=== PATIENT | female | born 1980 | race Caucasian/White ===

== ENCOUNTER 2020-10-10 14:50 | Outpatient (CLI) | payer OTHER, SELFPAY ==
--- NOTE | ~2020-10-10 | XR_ITS ---
EXAMINATION:XR_[id number]_CR, XR thoracic spine 2V DATE: 10/10/2020 15:19 INDICATION: Neck and thoracic spine pain. TECHNIQUE: 1. AP, lateral and odontoid views of the cervical spine are provided. 2. AP, lateral and lateral swimmer's views of the thoracic spine are provided. COMPARISON: None FINDINGS: Cervical spine: Straightening of the normal cervical lordosis . Odontoid is intact. Normal atlantoaxial interval. Ve rtebral body heights are normal. Mild disc height loss at C6-C7. Mild uncovertebral and facet osteoar thritis at a few levels in the thoracic spine. Prevertebral soft tissues are normal. Thoracic spine: Alignment is normal. Vertebral body heights are normal. Mild disc height loss at a few levels the mid to lower thoracic spine greatest at T7-T8 through T9-T10. Paravertebral soft tissues are unremarkabl e. Visual is portions of the lungs are clear. Cardiomediastinal silhouette is normal. IMPRESSION: 1. Mild cervical and thoracic spondylosis. Reviewed, dictated and finalized at location . RAISING SALE REPRESENTATIVE IMPRESSION: 1. Mild cervical and thoracic spondylosis.
== END 2020-10-10 14:51 | disposition home or self-care (01) ==
LOC: ANHIMG 14:57
PROVIDERS: PCP Nurse Practitioner Family; Visit Provider Nurse Practitioner Family
DX: M54.2 Cervicalgia (principal); M54.6 Pain in thoracic spine; M47.12 Other spondylosis with myelopathy, cervical region; M48.14 Ankylosing hyperostosis [Forestier], thoracic region
CPT/HCPCS: 72040; 72070

== ENCOUNTER 2020-10-29 13:15 | Outpatient (RCR) | payer OTHER, SELFPAY ==
--- NOTE | 2020-10-15 11:57 | PTOPEVAL ---
PHYSICAL THERAPY EVALUATION Thank you for referring Maryam Petty [facility].? Maryam was evaluated today with a dx of cervicalgia. The patient is scheduled to be seen for therapy? 2 x/week for 3 weeks. Please review, sign, date and return this plan of care ROCAEL. I agree with and certify that the following plan of care is medically necessary. Referring Physician Date Attending Provider: Linsey Meeks, ELECTRICAL CONTINUITY TESTER *PT Outpatient Evaluation Start: 10/15/20 10:48 Freq: Status: Active Protocol: Document 10/15/20 10:48 MLV (Rec: 10/15/20 11:47 [facility] [id number]) Therapy Assessment Status Evaluation Information Problem Diagnosis cervicalgia Onset 3 weeks Cause none Additional Evaluation Detail Patient had no neck or shoulder pain in the past, then woke up one morning with shoulder blade pain. 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 The patient cares for 3 children. The patient has no hobbies that would aggravate the pain. Diagnostic Tests X-Rays For This Problem Yes: cervical OA MRI For This Problem No Other Tests For This Problem No Pain Assessment Timing of Pain Assessment Timing of Pain Assessment Assessment Pain Scale Pain Scale Used Numeric (1 - 10) Self Report Pain Assessment Right Neck Reported Pain Level 4 Pain Description Burning,Sharp Lowest Pain Intensity 4 Greatest Pain Intensity 7 Pain Level Goal 0 Pain Aggravating Factors Prolonged Position,Sitting Pain Behaviors Guarding Pain Score Pain Score 4: Self Report Interventions Used Interventions Used By Clinicians Education Pain Relief Interventions Used By Medication,Position Change Patient Other Alleviating Interventions diclofenac giving temporary relief, raising right arm overhead Cervical and Lumbar ROM Cervical ROM Cervical Flexion (0-60) 60 Query Text:Active in Degrees Cervical Extension (0-70) 70 Query Text:Active in Degrees Cervical Lateral Flexion Right (0-50) 50 Query Text:Active in Degrees Cervical Lateral Flexion Left (0-50) 40 Query Text:Active in Degrees Cervical Rotation Right (0-90) 90 Query Text:Active in Degrees Cervical Rotation Left (0-90) 90 Query Text:Active in Degrees Upper Extremity Range of Roc
--- NOTE | 2020-10-23 08:38 | PCPTNOTE ---
Patient did not show up for scheduled appointment this date. Called patient, however, had to leave a message.
--- NOTE | 2020-11-01 16:08 | PCPTNOTE ---
Patient called & cancelled scheduled appointment this date.
--- NOTE | 2020-11-06 12:40 | PCPTNOTE ---
Patient called & cancelled scheduled appointment this date due to has to take her daughter to the
--- NOTE | 2020-11-09 13:07 | PCPTNOTE ---
Patient did not show up for scheduled appointment this date. Patient was called and reports she forgot about today's appt. The patient states she will call on Thursday to discuss possible reschedule. Patient has no other scheduled appt's at this time.
--- NOTE | 2020-12-07 08:19 | PCPTNOTE ---
PHYSICAL THERAPY DISCHARGE SUMMARY Attending Provider: Linsey Meeks, SIERRA Patient:Maryam Petty Date of :1980 Patient has not returned for any further treatments since 10/29/2020, therefore she will be discharged at this time. Patient?s initial visit was on 10/15/2020 10:30 and she had a total of 3 visits. The goals have not been met. Thank you for referring this patient to [facility]. Please review, sign, date and return this discharge summary ROCAEL. I have been updated about the patient's current status and I agree with discharge from the above service at this time. Referring Physician Date
== END 2020-12-10 13:35 | disposition home or self-care (01) ==
LOC: ANHPT 13:15
PROVIDERS: PCP Nurse Practitioner Family; Visit Provider Nurse Practitioner Family
DX: M54.2 Cervicalgia (principal)
CPT/HCPCS: 97014; 97110; 97140; 97161; G0283

== ENCOUNTER 2022-03-26 14:09 | Outpatient (CLI) | payer OTHER, SELFPAY ==
--- NOTE | 2022-03-26 14:21 | ECG_ITS ---
Measurements Intervals Isabel Rate: 80 P: 53 MI: 150 QRS: 88 QRSD: 85 T: 74 QT: 365 QTc: 421 Interpretive Statements SINUS RHYTHM BASELINE WANDER- V4 NORMAL ECG Electronically Signed On 03-26-2022 15:15:10 CDT by Giovanni Park D.O.
== END 2022-03-26 14:10 | disposition home or self-care (01) ==
LOC: ANHCARD 14:13
PROVIDERS: PCP Nurse Practitioner Family; Visit Provider Anesthesiology
DX: Z01.810 Encounter for preprocedural cardiovascular examination (principal); F17.200 Nicotine dependence, unspecified, uncomplicated
CPT/HCPCS: 93005

== ENCOUNTER 2025-03-10 10:54 | Outpatient (CLI) | payer OTHER, SELFPAY ==
--- NOTE | ~2025-03-10 | MMUS_ITS ---
EXAMINATION: MM diag darrin implant BI w melony, US breast LT limited HISTORY: Palpable left breast abnormality TECHNIQUE: Additional 3-D tomosynthesis images of the breasts were performed and synthetic 2-D images were generated. CAD analysis was submitted and interpreted. High resolution Limited left breast ultr asound was performed. COMPARISON: None BREAST PARENCHYMAL COMPOSITION: Dense: The breasts are heterogeneously dense, which may obscure small masses FINDINGS: MAMMOGRAPHIC FINDINGS: There are bilateral subpectoral breast implants. There are no suspicious masses, calcifications or ar chitectural distortion in either breast to suggest malignancy. ULTRASOUND: Limited left breast ultrasound: There is a normal-appearing left axillary lymph node with fatty hilum measuring 1 cm. No suspicious masses to suggest malignancy. IMPRESSION: 1. No evidence for malignancy in either breast. Normal lymph node corresponds to the area of palpable concern. 2. Routine yearly screening mammogram and regular clinical breast examination are recommended. BI-RADS Category 2: Benign finding(s). Reviewed, dictated and finalized at location B. IMPRESSION: 1. No evidence for malignancy in either breast. Normal lymph node corresponds t o the area of palpable concern. 2. Routine yearly screening mammogram and regular clinical breast examination a re recommended. BI-RADS Category 2: Benign finding(s).
--- OUTSIDE RECORDS SUMMARY | 2025-03-10 11:12 | XMS_ITS | Referral Summary ---
Author Organization [facility] [address] Address [address] [place] [id number] Care Team Providers Care Director Of Nursing Name Role Phone Unknown, Notinfile Primary Care Provider Unavail able Allergies No known active allergies Medications benzonatate (TESSALON) 100 mg capsuleIndications: Cough Take 1 capsule (100 mg total) by mouth 3 (three) times a day as needed for cough 42 capsule 09/29/20 24 Active Additional Information Patient not taking.Reported on 10/15/2024 lidocaine viscous (XYLOCAINE) 2 % solutionIndications :Sore throat Apply 10 mL to the mouth or throat every 6 (six) hours as needed (sore throat) May mix with 30 ml of Mylanta 100 mL 09/29/20 24 Active Additional Information Patient not taking.Reported on 10/15/2024 acyclovir (ZOVIRAX) 400 mg tablet TAKE 1 TABLET BY MOUTH THREE TIMES DAILY FOR 5 DAYS 11/01/20 24 Active albuterol HFA (PROVENTIL HFA,VENTOLIN HFA,PROAIR HFA) 90 mcg/actuation inhalerIndications: Hx of wheezing Inhale 2 puffs every 6 (six) hours as needed for wheezing 1 each 12/08/19 25 026 Active benzonatate (TESSALON) 200 mg capsuleIndications: Acute nasopharyngitis Take 1 capsule (200 mg total) by mouth 3 (three) times a day as needed for cough keep tessalon out of reach of children, especially children under the age of 10, due to possible serious risk such as if ingested by children under the age of 10. 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 Gender Identity Not on file Sexual Orientation Not on file Last Filed Vital Signs Vital Sign Reading Time Taken Comments Blood Pressure 110/72 12/08/2024 4:15 PM HYDRAULIC PRESS SERVICER Pulse 88 12/08/2024 4:15 PM HYDRAULIC PRESS SERVICER Temperature 36.8 C (98.2 F) 12/08/2024 4:15 PM HYDRAULIC PRESS SERVICER Respiratory Rate 20 12/08/2024 4:15 PM HYDRAULIC PRESS SERVICER Oxygen Saturation 99% 12/08/2024 4:15 PM HYDRAULIC PRESS SERVICER Inhaled Oxygen Concentration - - Weight 64.9 kg (143 lb) 12/08/2024 4:15 PM HYDRAULIC PRESS SERVICER Height 175.3 cm (5' 9 ) 12/08/2024 4:15 PM HYDRAULIC PRESS SERVICER Body Mass Index 21.12 12/08/2024 4:15 PM HYDRAULIC PRESS SERVICER Plan of Treatment Not on file Insurance [facility] Care Teams Director Of Nursing Relationship Specialty Start Date End Date Unknown, Notinfile PCP - General 09/29/24
--- OUTSIDE RECORDS SUMMARY | 2025-03-10 11:12 | XMS_ITS | Data Portability ---
Author Organization [facility] [place] Address [address] [place] [address] Care Team Providers Care E Learning Manager Name Role Phone ANIVAL MUSE Primary Care Provider Assessment Encounter Date Assessment Date Assessment LastModified by Organization Details LastModified Time 01/13/2022 01/13/2022 healthy female exam patient desires std testing pap done, discussed guidelines mammogram ordered and encouraged contraception- Discussed various forms of contraception including their usage, and risks, benefits, and alternatives. Pt desires sterilization. she is certain. tubal paper signed. will schedule and discuss in depth at preop visit. FU 1 year or prn Not available 01/14/2022 09:28:25 Plan of Treatment Reminders Order Date Submit Date Provider Last Modified By Organization Details Last Modified Time Details Appointments None recorded. Lab HBsAg (hepatitis B surface Ag), serum 2021 022 [facility] (Lab), [address], [place], [address], 15:23:29 hepatitis C virus Ab, serum 2021 022 [facility] (Lab), [address], [place], [address], 15:23:29 unlisted lab - HIV 1/2 antigen/ant ibody, reflex confirmatio n 2021 [facility] (Lab), [address] [place], [address], 15:23:29 RPR (rapid plasma reagin), serum 2021 [facility] (Lab), [address], [place], [address], 15:23:29 Referral None recorded. Procedures None recorded. Surgeries salpingecto my, laparoscopi c (SURG) 2021 [facility] [place], [address], [place], [address], 09:31:42 Imaging None recorded. Medication Orders None recorded. Patient TargetsNo targets recorded. Patient InstructionsNo instructions recorded. Reason for Referral None Reported. Results Created Date Observation Date Name Description Value Unit Range Abnormal Flag Note LastModifiedBy Organization Detail LastModifiedTime 01/13/2001/13/2022 IMAGE GUIDE D PAP AND HPV REGAR DLESS image guided Pap, HPV regardless of Pap result SEE RESULT S BELOW CASE REPOR T: Cytol ogy Gynec ologi dian Repor t Case: [id number] Autho riclemente g Provi andre: Yumiko Laguerre MD Colle cted: 01/13 1548 Order ing Locat ion: [place] [facility] Recei ish: 01/13 2351 First Scree n: Noadore willson, Moham ed, [place] Rescr een: Olivia barry, [place], [place] Speci men: Scree stu Pap - Image d, Cervi x STATE MENT OF ADEQU ACY: Satis facto ry for evalu ation Trans forma tion zone compo nent absen t The absen ce of an endoc ervic al compo nent was confi rmed by an addit ional scree ner. FINAL DIAGN OSIS: Negat darshan for Intra epith elial Lesio n or Anna hercules (NIL) . Shift in deepa sugge stive of bacte rial vagin osis. Elect solomon caro renea d by Olivia barry, [place], [place] on 2021 at 2:16 PM ----- ----- ----- ----- ----- ----- ----- ----- ----- ----- ----- ----- ----- ----- ----- ----- ----- ---- HPV RESUL TS: HPV mRNA E6/E7 : No HPV mRNA Detec wendie NOTE: This high risk HPV mRNA assay detec ts fourt een high- risk HPV types (16, 18, 31, 33, 35, 39, 45, 51, 52, 56, 58, 59, 66, 68) witho ut diffe renti ation . COMME NT: Note: This speci men was revie wed by a Cytot echno logis t and/o r Patho logis t (as indic ated in this repor t) after evalu ation using the Thinp rep Imagi ng Syste m. CLINI DIAN INFOR MATIO N: Menst rual Statu s: LMP (if appli cable ): Clini dian Histo ry/Pr eviou s Pap: Type of Neopl jason (if appli cable ): Signi fican t Clini dian Findi ngs: Other Histo ry: Hormo jean (if appli cable ): PAP EDUCA AIDAN L NOTE: The Pap Test is a scree stu test with an inher ent false negat darshan rate. Liqui d-bas ed sampl ing may decre ase, but will not elimi murphy, false negat darshan resul ts. A negat darshan resul t does not precl ude the prese nce and/o r devel opmen t of disea se, since the prese nce of abnor mal cells in the sampl e depen ds on the locat ion of the lesio n and sampl ing techn ique. Anoop nued regul ar scree stu is the best metho d of cance r preve ntion . If repor wendie cytol ogic findi ng do not corre late with physi dian and/o r histo rical findi ngs, fur er inves tigat ion is recom kayla d, as clini ling pringle nted. Not Available [facility] (Lab) [address], [place], [address], 01/18/2022 15:18:49 Result Notes None recorded. Procedures Surgical History Date Name Laterality Status Provider Name and Address Organization Details Recorded Time [address] [facility] 01/13/2022 14:11:58 Imaging Results None recorded. Procedure Notes None recorded. Medical Equipment None Reported. Medications Name Sig Start Date Stop Date Status Note LastModified by Organization Details LastModified Time acyclovir 400 mg tablet TAKE 1 TABLET BY MOUTH THREE TIMES DAILY FOR 5 DAYS active Not Available Not Available N ot Available phenazopyrid ine 100 mg tablet TAKE 1 TABLET BY MOUTH THREE TIMES DAILY active Not Available Not Available Not Available promethazine 25 mg tablet TAKE 1 TABLET BY MOUTH EVERY 4 TO 6 HOURS NEEDED FOR NAUSEA active Not Available Not Available No t Available nicotine 21 mg/24 hr daily transdermal patch APPLY 1 PATCH EVERY DAY TO SKIN active Not Available Not Available Not Available hydroxyzine HCl 25 mg tablet TAKE 1 TABLET BY MOUTH EVERY 6 HOURS NEEDED active Not Available Not Available No t Available ibuprofen 600 mg tablet TAKE 1 TABLET BY MOUTH EVERY 6 HOURS NEEDED FOR PAIN active Not Available Not Available No t Available methylpredni solone 4 mg tablets in a dose pack FOLLOW PACKAGE DIRECTIONS active Not Available Not Available N ot Available bupropion HCl XL 150 mg 24 hr tablet, extended release TAKE 1 TABLET BY MOUTH EVERY DAY active Not Available Not Available No t Available nitrofuranto in monohydrate/ macrocrystal s 100 mg capsule TAKE 1 CAPSULE BY MOUTH EVERY 12 HOURS FOR 5 DAYS active Not Available Not Available N ot Available Plan B One-Step 1.5 mg tablet Take 1 tablet by oral route. 2021 active Not Available Not Available Not Avai lable Vitals Date Recorded Body height Body mass index (BMI) Body weight Systolic blood pressure Diastolic blood pressure Provider Name and Address Organization Details Last Updated DateTime 01/13/2022 175.26 cm 22.9 kg/m2 18318.82 g 114 mm[Hg] 73 mm[Hg] [facility] 14:08:17 Social History Question Answer Notes LastModified by Organizat ion Details LastModified Time Tobacco Smoking Status Current Every Day Smoker Grace Safia [facility] 01/13/2022 14:13:09 What Is Your Level Of Alcohol Consumption? Occasional Information not available 01/13/2022 Have You Ever Been Counseled For Unhealthy Alcohol Use? No Information not available 01/13/2022 How Much Tobacco Do You Smoke? 0.5 PPD Information not available 01/13/2022 Do You Use Any Illicit Or Recreational Drugs? No Information not available 01/13/2022 Has Tobacco Cessation Counseling Been Provided? No Information not available 01/13/2022 Do You Or Have You Ever Used Any Other Forms Of Tobacco Or Nicotine? No Information not available 01/13/2022 Sex: Unknown Functional Status None recorded. Mental Status None recorded. Family History Nothing Reported. Medical History Condition Response Allergies (Food, seasonal, environmental ) N Other N Breast Cancer N Drug/Latex Allergies/Reactions N Blood Transfusion N Dermatologic Disorders N Lung Disease N Defects or Inherited Disease N Breast Problem N Gestational Diabetes N Hematologic disorders N Anesthesia Complications N History of STI N Deep Vein Thrombosis N Polycystic ovary syndrome N Anxiety Disorder N Autoimmune disease N Arthritis N Infertility N Polyps N Acid Reflux (GERD) N History of abnormal pap N Cancer N Stroke N Varicosities N Neurologic/Epilepsy N Endometriosis N High Cholesterol N Headaches N Fibromyalgia N Kidney Disease N Heart Problems N Kidney or Bladder Problems N Thyroid Problems N GI Problems N Eating Disorder N Anemia N Art (IVF or FET) N Psychiatric Illness N Ovarian Cancer N Diabetes N Pulmonary (TB, Asthma) N Hepatitis/Liver Disease N No Past Medical History N Eczema N Urinary Tract Infection N Abuse/Domestic Violence N Asthma N Trauma/Violence N Depression/ depression N Heart Disease N Pre-Eclampsia N Hypertension N Osteoporosis N Thrombophilias N Gynecological History Statement/Question Response Date of Last Pap Smear Current Control Method None Date of Last Mammogram Date of LMP Obstetrics History GPAL:G 5 P 4 0 1 4 Type Value Full Term 4 Induced 1 Living 4 Total 5 Past Encounters Encounter ID Performer Location Encounter Start Date Encounter Closed Date Diagnosis/Indication Diagnosis SNOMED-CT Code Diagnosis ICD10 Code Diagnosis Note [id number] Yumiko Gimenez MD [place] [address] [address] 01/13/2022 13:57:44 01/14/2022 15:17:11 Gynecologic examination 95772341 Z01.419 Z11.51 Sterilizat ion requested 858162858 Z30.2 Venereal d isease screening 264887934 Z11.3 Health Concerns Section Related Observation LastModified by Organization Detai ls LastModified Time None Recorded Concern Status LastModified by Organization Details LastModified Time None Recorded Advance Directives Directive None Recorded Payers Encounter Date Sequence Insurance Name Policy Number Policy Herron Covered Member ID Herron Member ID Guarantor Name 01/13/2022 1 [facility] (MEDICAID HMO) [id number] Maryam Cazares [id number] Maryam Cazares Notes Date Note Type Note Provider Name and Address Organization Details Recorded Time 01/13/2022 text/html Patient is a 41yo who presents for an annual exam. Paps all normal. interested in BC or maybe tubal. smoker. last pap-2018 mammogram- none sexually active-y contraception-co ndoms sometimes seatbelts-y exercise-y depression-denie s domestic violence-denies tobacco-n concerns- Yumiko Gimenez MD [address], [place], [address], [facility] 01/15/2022 11:38:49 OBGyn Episode Ob Episode Information Episode Created Date Number of Fetuses Patient Bloodtype Patient rh Status Prepregnancy Weight lbs Domestic Partner Domestic Partner Phone Father Name Blue Split Trimmer Status 01/13/20 22 1 CLOSED Fetus Data First Name Last Name Admitted to NICU Weight (g) Sex Living Outcome Pediatric Complications Fetus ID Race Codes Race Delivery Type M Full Term [id number] Vaginal Delivery Seferino Calculation Initial Seferino Date Initial Exam Date Initial Exam Provider Initial Ultrasound Date Last Menstrual Period Date Ultra Sound Weeks Gestation 0 Eighteen To Twenty Week Seferino Update Ultra Sound Date Fundal Height At Umbil Quickening Date Ultra Sound Latest Weeks Gestation Final Seferino Confirmed By Final Seferino Confirmed Date Final Seferino Date Ultra Sound Latest Days Gestation 0 0 Menstrual History Last Menstrual Date Menses Monthly On Bcp Conception Prior Menses Frequency Hcg Plus Date Menarche Onset Age Delivery Information Delivery Date Delivery Type Labor Anesthesia Weeks Gestation Incision Type Labor Labor Length Hrs Delivered By Post Complications Tubal Sterilization Discharge Date Comments 7 40 Discharge Information Feeding Method Contraceptive Method Maternal HG B and HCT Levels Ob Episode Information Episode Created Date Number of Fetuses Patient Bloodtype Patient rh Status Prepregnancy Weight lbs Domestic Partner Domestic Partner Phone Father Name Blue Split Trimmer Status 01/13/20 22 1 CLOSED Fetus Data First Name Last Name Admitted to NICU Weight (g) Sex Living Outcome Pediatric Complications Fetus ID Race Codes Race Delivery Type M Full Term [id number] Vaginal Delivery Seferino Calculation Initial Seferino Date Initial Exam Date Initial Exam Provider Initial Ultrasound Date Last Menstrual Period Date Ultra Sound Weeks Gestation 0 Eighteen To Twenty Week Seferino Update Ultra Sound Date Fundal Height At Umbil Quickening Date Ultra Sound Latest Weeks Gestation Final Seferino Confirmed By Final Seferino Confirmed Date Final Seferino Date Ultra Sound Latest Days Gestation 0 0 Menstrual History Last Menstrual Date Menses Monthly On Bcp Conception Prior Menses Frequency Hcg Plus Date Menarche Onset Age Delivery Information Delivery Date Delivery Type Labor Anesthesia Weeks Gestation Incision Type Labor Labor Length Hrs Delivered By Post Complications Tubal Sterilization Discharge Date Comments 3 40 Discharge Information Feeding Method Contraceptive Method Maternal HG B and HCT Levels Ob Episode Information Episode Created Date Number of Fetuses Patient Bloodtype Patient rh Status Prepregnancy Weight lbs Domestic Partner Domestic Partner Phone Father Name Blue Split Trimmer Status 01/13/20 22 1 CLOSED Fetus Data First Name Last Name Admitted to NICU Weight (g) Sex Living Outcome Pediatric Complications Fetus ID Race Codes Race Delivery Type F Full Term [id number] Vaginal Delivery Seferino Calculation Initial Seferino Date Initial Exam Date Initial Exam Provider Initial Ultrasound Date Last Menstrual Period Date Ultra Sound Weeks Gestation 0 Eighteen To Twenty Week Seferino Update Ultra Sound Date Fundal Height At Umbil Quickening Date Ultra Sound Latest Weeks Gestation Final Seferino Confirmed By Final Seferino Confirmed Date Final Seferino Date Ultra Sound Latest Days Gestation 0 0 Menstrual History Last Menstrual Date Menses Monthly On Bcp Conception Prior Menses Frequency Hcg Plus Date Menarche Onset Age Delivery Information Delivery Date Delivery Type Labor Anesthesia Weeks Gestation Incision Type Labor Labor Length Hrs Delivered By Post Complications Tubal Sterilization Discharge Date Comments 2 40 Discharge Information Feeding Method Contraceptive Method Maternal HG B and HCT Levels Ob Episode Information Episode Created Date Number of Fetuses Patient Bloodtype Patient rh Status Prepregnancy Weight lbs Domestic Partner Domestic Partner Phone Father Name Blue Split Trimmer Status 01/13/20 22 1 CLOSED Fetus Data First Name Last Name Admitted to NICU Weight (g) Sex Living Outcome Pediatric Complications Fetus ID Race Codes Race Delivery Type F Full Term [id number] Vaginal Delivery Seferino Calculation Initial Seferino Date Initial Exam Date Initial Exam Provider Initial Ultrasound Date Last Menstrual Period Date Ultra Sound Weeks Gestation 0 Eighteen To Twenty Week Seferino Update Ultra Sound Date Fundal Height At Umbil Quickening Date Ultra Sound Latest Weeks Gestation Final Seferino Confirmed By Final Seferino Confirmed Date Final Seferino Date Ultra Sound Latest Days Gestation 0 0 Menstrual History Last Menstrual Date Menses Monthly On Bcp Conception Prior Menses Frequency Hcg Plus Date Menarche Onset Age Delivery Information Delivery Date Delivery Type Labor Anesthesia Weeks Gestation Incision Type Labor Labor Length Hrs Delivered By Post Complications Tubal Sterilization Discharge Date Comments 7 40 Discharge Information Feeding Method Contraceptive Method Maternal HG B and HCT Levels
--- OUTSIDE RECORDS SUMMARY | 2025-03-10 11:12 | XMS_ITS | Clinical Summary ---
Author Organization [facility] Address [address] [place] [address] Phone Care Team Providers Care Metal Flow Coordinator Name Role Phone Provider, None Primary Care Provider Unavailabl e Allergies No known active allergies Medications methylPREDNISol one (MEDROL DOSPACK) 4 MG Tablet Therapy Pack See product package insert for dosing schedule 21 Tablet 05/18/2023 Active cyclobenzaprine (FLEXERIL) 5 MG Tablet Take 1 Tablet by mouth 3 times daily as needed for Muscle spasms. 15 Tablet 05/18/2023 Active ketorolac (TORADOL) 10 MG Tablet Take 1 Tablet by mouth every 6 hours as needed for Mild or more severe pain. 15 Tablet 05/18/2023 Active Social History Tobacco Use Types Packs/Day Years Used Date Smoking Tobacco: Unknown Tobacco Cessation:Counseling Given: Not Answered Comments Unknown Sex and Gender Information Value Date Recorded Sex Assigned at Not on file Legal Sex Female 2:22 PM CDT Gender Identity Not on file Sexual Orientation Not on file Last Filed Vital Signs Vital Sign Reading Time Taken Comments Blood Pressure 128/69 05/18/2023 5:51 PM CDT Pulse 90 05/18/2023 5:51 PM CDT Temperature 37.2 C (99 F) 05/18/2023 2:44 PM CDT Respiratory Rate 18 05/18/2023 5:51 PM CDT Oxygen Saturation 100% 05/18/2023 5:51 PM CDT Inhaled Oxygen Concentration - - Weight 68 kg (150 lb) 05/18/2023 2:44 PM CDT Height 175.3 cm (5' 9 ) 05/18/2023 2:44 PM CDT Body Mass Index 22.15 05/18/2023 2:44 PM CDT Plan of Treatment Health Maintenance Due Date Last Done Comments Hepatitis C Virus (HCV) Screening 1978 Mammogram 1978 Pap Smear 1999 Cervical Cancer Screening (CCS) 2008 HPV/Cotest 2008 Discussion re Starting/Frequency of Mammograms 2018 Colonoscopy 2023 Colorectal Cancer Screening 2023 Hepatitis B Immunization (3 of 3 - 19+ 3-dose series) 07/05/2023 02/11/2023, 01/05/2023 Influenza Immunization (#1) 2024 SARS-COV-2 Immunization (2023- season) 2024 07/15/2021, 06/24/2021, 06/03/2021 Respiratory Syncytial Virus (RSV) Immunization (Adult) (1 - 1-dose 75+ series) 2053 DTaP/Tdap/Td Immunization Discontinued 11/03/2019 TdaP Immunization Completed 11/03/2019 Meningococcal Immunization (ACWY) Aged Out No longer eligible based on patient's age to complete this topic Pneumococcal Immunization Combined Aged Out No longer eligible based on patient's age to complete this topic Rotavirus Immunization Aged Out No lo nger eligible based on patient's age to complete this topic Insurance MEDICAID [place] Care Teams Metal Flow Coordinator Relationship Specialty Start Date End Date Provider, None [place] PCP - General 05/18/23
--- OUTSIDE RECORDS SUMMARY | 2025-03-10 11:12 | XMS_ITS | Clinical Summary ---
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 Gender Identity Not on file Sexual Orientation Not on file Obstetrics History Last Filed Vital Signs Vital Sign Reading Time Taken Comments Blood Pressure 110/72 12/08/2024 4:15 PM CEMENT TILE MAKER Pulse 88 12/08/2024 4:15 PM CEMENT TILE MAKER Temperature 36.8 C (98.2 F) 12/08/2024 4:15 PM CEMENT TILE MAKER Respiratory Rate 20 12/08/2024 4:15 PM CEMENT TILE MAKER Oxygen Saturation 99% 12/08/2024 4:15 PM CEMENT TILE MAKER Inhaled Oxygen Concentration - - Weight 64.9 kg (143 lb) 12/08/2024 4:15 PM CEMENT TILE MAKER Height 175.3 cm (5' 9 ) 12/08/2024 4:15 PM CEMENT TILE MAKER Body Mass Index 21.12 12/08/2024 4:15 PM CEMENT TILE MAKER Plan of Treatment Health Maintenance Due Date Last Done Comments Breast Cancer Screening-Mammogram 1978 Cervical Cancer Screening 1978 Colon Cancer Screening-Colonoscopy 1978 Depression Screening 1978 Hepatitis C Screening 1978 Regular Well Visit/Exam 18-64 1996 Pneumococcal vaccine <65 (1 of 2 - PCV) 1997 HPV Vaccines (3 - 3-dose SCDM series) 05/25/2023, 11/25/2022 Covid-19 Vaccine ( season) 2024 07/15/2021, 06/24/2021, 06/03/2021 Influenza Vaccine (Season Ended) 2025 DTaP/Tdap/Td Vaccine (2 - Td or Tdap) 11/03/202910/2019 Hepatitis B Screening Completed 02/11/2023, 023 Insurance Care Teams Pv Design And Installation Technician Relationship Specialty Start Date End Date Unknown, Notinfile PCP - General 09/29/24
== END 2025-03-10 10:55 | disposition home or self-care (01) ==
LOC: ANHIMG 11:00
PROVIDERS: PCP Nurse Practitioner Family; Visit Provider Nurse Practitioner Family
DX: R22.2 Localized swelling, mass and lump, trunk (principal)
CPT/HCPCS: 76642; 77062; 77066; G0279

== ENCOUNTER 2025-04-11 12:26 | Emergency (ER) | payer OTHER, SELFPAY ==
--- NOTE | ~2025-04-11 | CT_ITS ---
EXAMINATION: CT abdomen pelvis wo con DATE: 04/11/2025 15:03 INDICATION: L flank/LLQ pain uti TECHNIQUE: Computed tomography (CT) of the abdomen and pelvis was performed without intravenous contr ast. Automated exposure control and iterative reconstruction technique were employed. The dose-length product was 229.38 mGy-cm. COMPARISON: None. FINDINGS: Lower thorax: Unremarkable Liver: Normal. Biliary/Gallbladder: Gallbladder is normal. No bile duct dilation. Pancreas: No mass or duct dilation. Spleen: Normal. Adrenals:No mass. Kidneys: No suspicious mass, obstructing stone, or hydronephrosis. Punctate left lower pole nonobstru cting calcification. Renal pyramid hyperdensity as can be seen with medullary nephrocalcinosis. Urete rs are not traceable in their entirety due to the paucity of abdominal fat. GI tract: No small or large bowel dilation. Normal appendix. Mesentery/Peritoneum: No ascites, mass, or free air. Mild diffuse mesenteric stranding. Retroperitoneum: No mass. Pelvis: Normal urinary bladder. Punctate calcification on the right, near the expected pathway of the ureter (image 137/180). Enlarged, somewhat lobular appearing uterus. Soft Tissues: Soft tissues and body wall unremarkable. Bones: No acute osseous finding. Multiple bone islands. IMPRESSION: No left-sided obstructive uropathy. Punctate nonobstructive left nephrolithiasis. Punctate right deep pelvic calcification which could represent vascular, dystrophic, or ureteral calc ification. CT urography would be required for confirmation. Mild diffuse mesenteric edema, a nonspecific finding. Enlarged, possibly fibroid uterus. Reviewed, dictated and finalized at location K. IMPRESSION: No left-sided obstructive uropathy. Punctate nonobstructive left nephrolithiasi s. Punctate right deep pelvic calcification which could represent vascular, dystro phic, or ureteral calcification. CT urography would be required for confirmatio n. Mild diffuse mesenteric edema, a nonspecific finding. Enlarged, possibly fibroid uterus.
--- OUTSIDE RECORDS SUMMARY | 2025-04-11 12:28 | XMS_ITS | Encounter Summary ---
Author Organization [facility] Healthcare Address [address] [place] [address] Care Team Providers Care Roll Builder Name Role Phone Meeks, Linseygiancarlo Huggins AND DRYING SUPERVISOR COOKING CASING Primary Care Provider [phone] Reason for Visit * Reason Comments Urinary Problem Patient here for c/o back pain and frequency Encounter Details Date Type Department Care Team (Late st Contact Info) Description 04/10/2025 11:30 AM CDT Office Visit [facility] at [address] [address] Gregoria Madrid, BUSHRA [address] [place] [address] [address] [place], [place] [id number] Acute cystitis with hematuria (Primary Dx) Social History Tobacco Use Types Packs/Day Years Used Date Smoking Tobacco: Every Day Cigarettes Comments Unknown Sex and Gender Information Value Date Recorded Sex Assigned at Not on file Legal Sex Female 10:07 AM PHYSICAL THERAPY SUPERVISOR Gender Identity Not on file Sexual Orientation Not on file documented as of this encounter Last Filed Vital Signs Vital Sign Reading Time Taken Comments Blood Pressure 113/72 04/10/2025 11:18 AM CDT Pulse 68 04/10/2025 11:18 AM CDT Temperature 36.6 C (97.8 F) 04/10/2025 11:18 AM CDT Respiratory Rate 21 04/10/2025 11:18 AM CDT Oxygen Saturation 97% 04/10/2025 11:18 AM CDT Inhaled Oxygen Concentration - - Weight 64.9 kg (143 lb) 04/10/2025 11:18 AM CDT Height 175.3 cm (5' 9 ) 04/10/2025 11:18 AM CDT Body Mass Index 21.12 04/10/2025 11:18 AM CDT documented in this encounter Patient Instructions * Patient Instructions* Gregoria Madrid PA - 04/10/2025 11:30 AM CDT -Take all antibiotic medications as prescribed. -We will notify you of urine culture results -Push fluids, especially water. This also helps prevent future infections. -Urinate when you feel the urge. Do not hold your urine. Urinate as soon as you feel you have to. -Cranberry juice has been shown to promote healing, use at your discretion. -Make sure to always wipe from front to back after urinating. -If you are sexually active make sure to urinate Before AND after sex to help prevent bladder infections. -Avoid intercourse until your symptoms are resolved for one week. -Do not drink alcohol, caffeine, and citrus juices. These can irritate your bladder and increase your symptoms. Seek care (go to Urgent Care or ER) immediately if: ?? You are urinating very little or not at all. ?? You are vomiting. ?? You have a high fever with shaking chills. ?? You have side or back pain that gets worse. ??Contact your primary care doctor or PANELBOARD OPERATOR if: ?? You have a fever. ?? You have white or yellow discharge from your vagina. ?? You do not feel better after 2 days of taking antibiotics. * Attachments The following attachments cannot be sent through Care Everywhere. * Urinary Tract Infection in Women (AfterCare(R) Instructions(ER/ED)) (Stateless) documented in this encounter Ordered Prescriptions Prescription Sig Dispense Quantity Refills Last Filled Start Date End Date nitrofurantoin monohydrate (MACROBID) 100 mg capsule Take 1 capsule (100 mg total) by mouth 2 (two) times a day for 5 days 10 capsule 04/10/2025 5 documented in this encounter Progress Notes * Gregoria Madrid PA - 04/10/2025 11:30 AM CDT Images from the original note were not included. Subjective/Objective Patient ID: Maryam Taylor Cazares is a 44 y.o. female. Chief Complaint Urinary Problem (Patient here for c/o back pain and frequency) Pt presents w/ urinary frequency x 8 days. Seemed to be improving w/ increased fluids until last night when it worsened. Also reports urgency, chills, nausea, low back pain, BA, suprapubic pressure, hot flashes. Denies dysuria, vomiting. Has not taken her temperature. Not taking otc meds. Review of Systems All systems reviewed and are negative or non contributory for this patient's presentation today other than as stated in the HPI . Physical Exam Constitutional: General: She is not in acute distress. HENT: Head: Normocephalic and atraumatic. Mouth/Throat: Pharynx: Oropharynx is clear. Eyes: Pupils: Pupils are equal, round, and reactive to light. Cardiovascular: Rate and Rhythm: Normal rate. Pulmonary: Effort: Pulmonary effort is normal. Abdominal: General: There is no distension. Palpations: Abdomen is soft. Tenderness: There is no abdominal tenderness. There is no guarding or rebound. Musculoskeletal: General: Normal range of motion. Cervical back: Normal range of motion. Skin: General: Skin is warm and dry. Neurological: General: No focal deficit present. Mental Status: She is alert and oriented to person, place, and time. Psychiatric: Mood and Affect: Mood normal. Behavior: Behavior normal. Vitals: 04/10/25 1118 BP: 113/72 Pulse: 68 Resp: 21 Temp: 36.6 ??C (97.8 ??F) SpO2: 97% Weight: 64.9 kg (143 lb) Height: 175.3 cm (5' 9 ) Assessment/Plan -UA suspicious for UTI -start macrobid -urine culture pending -vitals stable Diagnoses and all orders for this visit: Acute cystitis with hematuria (Primary) - POCT urinalysis dipstick - Urine culture Urine, clean voided; Future Other orders - nitrofurantoin monohydrate (MACROBID) 100 mg capsule; Take 1 capsule (100 mg total) by mouth 2 (two) times a day for 5 days Recent Results (from the past 4 hours) POCT urinalysis dipstick Collection Time: 04/10/25 11:24 AM Result Value Ref Range Color, Urine, POC Light Yellow Clarity, ur, POC Cloudy (A) Clear Glucose, ur, POC Negative Negative Bilirubin, ur, POC Negative Negative Ketones, ur, POC 15. (A) Negative Specific Hern[place], POC 1.005 1.003 - 1.030 Blood, ur, POC Non-hemolyzed, trace (A) Negative pH, ur, POC 5.5 5.0 - 8.0 Protein, ur, POC Negative Negative Urobilinogen, urine, POC 0.2 0.2 - 1.0 mg/dL Nitrite, ur, POC Negative Negative Leukocytes, ur, POC Small (A) Negative Lot Number 0 Disposition Treatment plan including expectations, follow up, and return precautions discussed with patient/parent, verbalizes understanding. Medication dosage, use, and potential adverse reactions discussed with patient/parent. Advised to follow up with PCP if symptoms do not resolve as expected or sooner if condition worsens. Signs/symptoms warranting ER evaluation reviewed. Patient and/or guardian was given an opportunity to ask questions, questions answered. BUSHRA Loya 04/10/25 11:42 AM documented in this encounter Miscellaneous Notes * Addendum Note - Siobhan Marie MA - 04/10/2025 11:30 AM CDTAddended by: SIOBHAN MARIE on: 04/10/2025 11:56 AM Modules accepted: Orders documented in this encounter Plan of Treatment Pending Results Name Type Priority Associated Diagnoses Date /Time Urine culture Urine, clean voided Microbiology Routine Acute cystitis with hematuria 04/10/2025 11:56 AM CDT Scheduled Orders Name Type Priority Associated Diagnoses Orde r Schedule Urine culture Urine, clean voided Microbiology Routine Acute cystitis with hematuria Expected: 04/13/2025, Expires: 04/10/2026 documented as of this encounter Procedures Procedure Name Priority Date/Time Associated Diagnosis Comments POCT URINALYSIS DIPSTICK Routine 04/10/2025 11:24 AM CDT Acute cystitis with hematuria documented in this encounter Results * (ABNORMAL) POCT urinalysis dipstick (04/10/2025 11:24 AM CDT) Color, Urine, POC Light Yellow Clarity, ur, POC Cloudy(A) Clear Glucose, ur, POC Negative Negative Bilirubin, ur, POC Negative Negative Ketones, ur, POC 15.(A) Negative Specific [place], POC 1.005 1.003 - 1.030 Blood, ur, POC Non-hemolyze d, trace(A) Negative pH, ur, POC 5.5 5.0 - 8.0 Protein, ur, POC Negative Negative Urobilinogen, urine, POC 0.2 0.2 - 1.0 mg/dL Nitrite, ur, POC Negative Negative Leukocytes, ur, POC Small(A) Negative Lot Number 0 Urine 04/10/2025 11:2 4 AM CDT Gregoria TOMLINSON POINT OF CARE TEST ORDER CARMELO Final Result documented in this encounter Visit Diagnoses Diagnosis Acute cystitis with hematuria- Primary documented in this encounter Historical Medications * This list may reflect changes made after this encounter. cloNIDine (CATAPRES) 0.1 mg tablet Take 1 tablet (0.1 mg total) by mouth daily as needed 02/28/2025 added in this encounter Care Teams Roll Builder Relationship Specialty Start Date End Date Linsey Meeks NP [address] [place] [address] PCP - General Nurse Practitioner 04/10/25 documented as of this encounter
--- OUTSIDE RECORDS SUMMARY | 2025-04-11 12:28 | XMS_ITS | Encounter Summary ---
Author Organization [facility] Healthcare Address [address] [place] [address] Care Team Providers Care Senior Database Engineer Name Role Phone Meeks, Linsey Huggins ASSOCIATE PROFESSOR OF BIOSTATISTICS Primary Care Provider Encounter Details Date Type Department Care Team (Latest Contact Info) Description 04/10/2025 11:56 AM CDT - 04/10/2025 11:59 PM CDT Hospital Encounter [facility] [id number] [place] [id number] Acute cystitis with hematuria Discharge Disposition: Discharge to home or self care Social History Tobacco Use Types Packs/Day Years Used Date Smoking Tobacco: Every Day Cigarettes Comments Unknown Sex and Gender Information Value Date Recorded Sex Assigned at Not on file Legal Sex Female 10:07 AM PUBLIC RELATIONS STUDIES DIRECTOR Gender Identity Not on file Sexual Orientation Not on file documented as of this encounter Medications at Time of Discharge acyclovir (ZOVIRAX) 400 mg tablet TAKE 1 TABLET BY MOUTH THREE TIMES DAILY FOR 5 DAYS 11/01/2024 albuterol HFA (PROVENTIL HFA,VENTOLIN HFA,PROAIR HFA) 90 mcg/actuation inhalerIndications:H x of wheezing Inhale 2 puffs every 6 (six) hours as needed for wheezing 1 each 12/08/2024 12/08/19 26 benzonatate (TESSALON) 100 mg capsuleIndications:C ough Take 1 capsule (100 mg total) by mouth 3 (three) times a day as needed for cough 42 capsule 09/29/2024 benzonatate (TESSALON) 200 mg capsuleIndications:A cute nasopharyngitis Take 1 capsule (200 mg total) by mouth 3 (three) times a day as needed for cough keep tessalon out of reach of children, especially children under the age of 10, due to possible serious risk such as if ingested by children under the age of 10. 30 capsule 12/08/2024 cloNIDine (CATAPRES) 0.1 mg tablet Take 1 tablet (0.1 mg total) by mouth daily as needed 02/28/2025 lidocaine viscous (XYLOCAINE) 2 % solutionIndications: Sore throat Apply 10 mL to the mouth or throat every 6 (six) hours as needed (sore throat) May mix with 30 ml of Mylanta 100 mL 09/29/2024 nitrofurantoin monohydrate (MACROBID) 100 mg capsule Take 1 capsule (100 mg total) by mouth 2 (two) times a day for 5 days 10 capsule 04/10/2025 04/15/20 documented as of this encounter Discharge Disposition Disposition Code Departure Means Destination Discharge to home or self care documented in this encounter Plan of Treatment Pending Results Name Type Priority Associated Diagnoses Date /Time Urine culture Urine, clean voided Microbiology Routine Acute cystitis with hematuria 04/10/2025 11:56 AM CDT Scheduled Orders Name Type Priority Associated Diagnoses Orde r Schedule Urine culture Urine, clean voided Microbiology Routine Acute cystitis with hematuria Once for 1 Occurrences starting 04/10/2025 until 04/10/2025 documented as of this encounter Visit Diagnoses Diagnosis Acute cystitis with hematuria documented in this encounter Care Teams Senior Database Engineer Relationship Specialty Start Date End Date Linsey Meeks NP [address] [place] [address] PCP - General Nurse Practitioner 04/10/25 documented as of this encounter
--- OUTSIDE RECORDS SUMMARY | 2025-04-11 12:28 | XMS_ITS | Data Portability ---
Author Organization [facility] [place] Address [address] [place] [address] Care Team Providers Care Print Color Matcher Name Role Phone ANIVAL MUSE Primary Care Provider [phone] Assessment Encounter Date Assessment Date Assessment LastModified [...] preop visit. FU 1 year or prn [email or web address] Not available 01/14/2022 09:28:25 Plan of Treatment Reminders Order Date Submit Date Provider Last Modified By Organization Details Last Modified Time Details Appointments None recorded. Lab HBsAg (hepatitis B surface Ag), serum 2021 022 [facility] (Lab), [address], [place], [address], 15:23:29 hepatitis C virus Ab, serum 2021 022 [facility] (Lab), [address], [place], [address], 15:23:29 unlisted lab - HIV 1/2 antigen/ant ibody, reflex confirmatio n 2021 022 [facility] (Lab), [address] [place], [address], 15:23:29 RPR (rapid plasma reagin), serum 2021 [facility] (Lab), [address], [place], [address], 15:23:29 Referral None recorded. Procedures None recorded. Surgeries salpingecto my, laparoscopi c (SURG) 2021 [facility] [place], [address], [place], [address], 09:31:42 Imaging None recorded. Medication Orders None [...] clini ling pringle nted. Not Available [facility] (Lab) [address], [place], [address], 01/18/2022 15:18:49 Result Notes None recorded. Procedures Surgical History Date Name Laterality Status Provider Name and Address Organization Details Recorded Time 5 Ovarian Cystectomy completed [facility] 01/13/2022 14:11:58 Imaging Results None recorded. [...] Updated DateTime 01/13/2022 175.26 cm 22.9 kg/m2 59747.82 g 114 mm[Hg] 73 mm[Hg] [facility] 14:08:17 Social History Question Answer Notes LastModified by Organizat ion Details LastModified Time Tobacco Smoking Status Current Every Day Smoker [facility] 01/13/2022 14:13:09 Have You Ever Been Counseled For Unhealthy Alcohol Use? No Information not available 01/13/2022 How Much Tobacco Do You Smoke? 0.5 PPD Information not available 01/13/2022 Has Tobacco Cessation Counseling Been Provided? No Information not available 01/13/2022 Sex: Unknown Functional Status Question Answer Note LastModified by Organizat ion Details LastModified Time Do you use any illicit or recreational drugs? No Information not available 01/13/2022 Do you or have you ever used any other forms of tobacco or nicotine? No Information not available 01/13/2022 What is your level of alcohol consumption? Occasional Information not available 01/13/2022 Mental Status None recorded. Family History Nothing [...] SNOMED-CT Code Diagnosis ICD10 Code Diagnosis Note [id number] Yumiko Gimenez MD [place] [address] [address] 01/13/2022 13:57:44 01/14/2022 15:17:11 Gynecologic examination 07683884 Z01.419 Z11.51 Sterilizat ion requested [id number] Z30.2 Venereal d isease screening 430956441 Z11.3 Health Concerns Section Related Observation LastModified by Organization Detai ls LastModified Time None Recorded Concern Status LastModified by Organization Details LastModified Time None Recorded Advance Directives Directive None Recorded Payers Encounter Date Sequence Insurance Name Policy Number Policy Herron Covered Member ID Herron Member ID Guarantor Name 01/13/2022 1 [facility] (MEDICAID HMO) [id number] Maryam Cazares [id number] Maryam Cazares Notes Date Note Type Note Provider Name and Address Organization Details Recorded Time 01/13/2022 text/html Patient is a 41yo who presents for an annual exam. Paps all normal. interested in BC or maybe tubal. smoker. last pap-2018 mammogram- none sexually active-y contraception-co ndoms sometimes seatbelts-y exercise-y depression-denie s domestic violence-denies tobacco-n concerns- Yumiko Gimenez MD [address], [place], [address], [facility] 01/15/2022 11:38:49 OBGyn Episode Ob Episode Information Episode Created Date Number of Fetuses Patient Bloodtype Patient rh Status Prepregnancy Weight lbs Domestic Partner Domestic Partner Phone Father Name Detective And Intelligence Analyst Status 01/13/20 22 1 CLOSED Fetus Data First Name Last Name Admitted to NICU Weight (g) Sex Living Outcome Pediatric Complications Fetus ID Race Codes Race Delivery Type M Full Term [id number] Vaginal Delivery Seferino Calculation Initial Seferino Date [...] Domestic Partner Domestic Partner Phone Father Name Detective And Intelligence Analyst Status 01/13/20 22 1 CLOSED Fetus Data First Name Last Name Admitted to NICU Weight (g) Sex Living Outcome Pediatric Complications Fetus ID Race Codes Race Delivery Type M Full Term [id number] Vaginal Delivery Seferino Calculation Initial Seferino Date [...] Domestic Partner Domestic Partner Phone Father Name Detective And Intelligence Analyst Status 01/13/20 22 1 CLOSED Fetus Data First Name Last Name Admitted to NICU Weight (g) Sex Living Outcome Pediatric Complications Fetus ID Race Codes Race Delivery Type F Full Term [id number] Vaginal Delivery Seferino Calculation Initial Seferino Date [...] Domestic Partner Domestic Partner Phone Father Name Detective And Intelligence Analyst Status 01/13/20 22 1 CLOSED Fetus Data First Name Last Name Admitted to NICU Weight (g) Sex Living Outcome Pediatric Complications Fetus ID Race Codes Race Delivery Type F Full Term [id number] Vaginal Delivery Seferino Calculation Initial Seferino Date [...]
--- OUTSIDE RECORDS SUMMARY | 2025-04-11 12:28 | XMS_ITS | Referral Summary ---
Author Organization [address] Address [address] [place] [phone] Care Team Providers Care Aircraft Time Clerk Name Role Phone Meeks, Linsey Bhavna DOS SANTOS Primary Care Provider Encounters Date Type Department Care Team Description 04/10/2025 11:56 AM CDT - 04/10/2025 11:59 PM CDT Hospital Encounter [address] [address] Acute cystitis with hematuria Discharge Disposition: Discharge to home or self care 04/10/2025 11:30 AM CDT Office Visit [facility] at [address] [phone] Gregoria Madrid PA Acute cystitis with hematuria (Primary Dx) from Last 3 Months Allergies No known active allergies Medications benzonatate (TESSALON) 100 mg capsuleIndications: Cough Take 1 capsule (100 mg total) by mouth 3 (three) times a day as needed for cough 42 capsule 09/29/20 24 Active Additional Information Patient not taking.Reported on 04/10/2025 lidocaine viscous (XYLOCAINE) 2 % solutionIndications :Sore throat Apply 10 mL to the mouth or throat every 6 (six) hours as needed (sore throat) May mix with 30 ml of Mylanta 100 mL 09/29/20 24 Active Additional Information Patient not taking.Reported on 04/10/2025 acyclovir (ZOVIRAX) 400 mg tablet TAKE 1 TABLET BY MOUTH THREE TIMES DAILY FOR 5 DAYS 11/01/20 24 Active albuterol HFA (PROVENTIL HFA,VENTOLIN HFA,PROAIR HFA) 90 mcg/actuation inhalerIndications: Hx of wheezing Inhale 2 puffs every 6 (six) hours as needed for wheezing 1 each 12/08/19 25 026 Active Additional Information Patient not taking.Reported on 04/10/2025 benzonatate (TESSALON) 200 mg capsuleIndications: Acute nasopharyngitis Take 1 capsule (200 mg total) by mouth 3 (three) times a day as needed for cough keep tessalon out of reach of children, especially children under the age of 10, due to possible serious risk such as if ingested by children under the age of 10. 30 capsule 12/08/19 25 Active Additional Information Patient not taking.Reported on 04/10/2025 cloNIDine (CATAPRES) 0.1 mg tablet Take 1 tablet (0.1 mg total) by mouth daily as needed 02/29/20 Active nitrofurantoin monohydrate (MACROBID) 100 mg capsule Take 1 capsule (100 mg total) by mouth 2 (two) times a day for 5 days 10 capsule 04/10/20 25 025 Active Active Problems No known active problems Social History Tobacco Use Types Packs/Day Years Used Date Smoking Tobacco: Every Day Cigarettes Tobacco Cessation:Ready to Q uit: Not Asked; Counseling Given: Not Answered Comments Unknown Sex and Gender Information Value Date Recorded Sex Assigned at Not on file 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 Gender Identity Not on file Sexual Orientation [...] Mass Index 21.12 04/10/2025 11:18 AM CDT Plan of Treatment Not on file Procedures Procedure Name Priority Date/Time Associated Diagnosis Comments POCT URINALYSIS DIPSTICK Routine 04/10/2025 11:24 AM CDT Acute cystitis with hematuria from Last 3 Months Results * (ABNORMAL) POCT urinalysis dipstick (04/10/2025 11:24 AM CDT) Color, Urine, POC Light Yellow Clarity, ur, POC Cloudy(A) Clear Glucose, ur, POC Negative Negative Bilirubin, ur, POC Negative Negative Ketones, ur, POC 15.(A) Negative Specific [place], POC 1.005 1.003 - 1.030 Blood, ur, POC Non-hemolyze d, trace(A) Negative pH, ur, POC 5.5 5.0 - 8.0 Protein, ur, POC Negative Negative Urobilinogen, urine, POC 0.2 0.2 - 1.0 mg/dL Nitrite, ur, POC Negative Negative Leukocytes, ur, POC Small(A) Negative Lot Number 0 Urine 04/10/2025 11:2 4 AM CDT Gregoria TOMLINSON POINT OF CARE TEST ORDER CARMELO Final Result from Last 3 Months Insurance [address] PIERCE [address] PIERCE [place] [id number] Care Teams Aircraft Time Clerk Relationship Specialty Start Date End Date Jeanna, Linsey Huggins NP [address] [place] [address] PCP - General Nurse Practitioner 04/10/25
--- OUTSIDE RECORDS SUMMARY | 2025-04-11 12:28 | XMS_ITS | Clinical Summary ---
Author Organization [place] [address] [address] Address [address] [place] [address] Care Team Providers Care School Business Manager Name Role Phone Meeks, Linsey Huggins OFFAL ICER POULTRY Primary Care Provider Allergies No known active allergies Medications benzonatate [...] Active Active Problems No known active problems Encounters Date Type Department Care Team Description 04/10/2025 11:56 AM CDT - 04/10/2025 11:59 PM CDT Hospital Encounter [address] [address] Acute cystitis with hematuria Discharge Disposition: Discharge to home or self care 04/10/2025 11:30 AM CDT Office Visit [facility] Care at [address] [address] Gregoria Madrid PA Acute cystitis with hematuria (Primary Dx) from Last 3 Months Social History Tobacco Use Types Packs/Day Years Used Date Smoking Tobacco: Every Day Cigarettes Tobacco Cessation:Ready to Q uit: Not Asked; Counseling Given: Not Answered Comments Unknown Sex and Gender Information Value Date Recorded Sex Assigned at Not on file 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 Gender Identity Not on file Sexual Orientation [...] 04/10/2025 11:18 AM CDT Plan of Treatment Health Maintenance Due Date Last Done Comments Breast Cancer Screening-Mammogram 1978 Cervical Cancer Screening 1978 Colon Cancer Screening-Colonoscopy 1978 Depression Screening 1978 Hepatitis C Screening 1978 Regular Well Visit/Exam 18-64 1996 Pneumococcal vaccine <65 (1 of 2 - PCV) 1997 HPV Vaccines (3 - 3-dose SCDM series) 05/25/2023, 11/25/2022 Covid-19 Vaccine ( - season) 2024 07/15/2021, 06/24/2021, 06/03/2021 Influenza Vaccine (Season Ended) 2025 DTaP/Tdap/Td Vaccine (2 - Td or Tdap) 11/03/202910/2019 Hepatitis B Screening Completed 02/11/2023, 023 Procedures Procedure Name Priority Date/Time Associated Diagnosis Comments POCT URINALYSIS DIPSTICK Routine 04/10/2025 11:24 AM CDT Acute cystitis with hematuria from Last 3 Months Results * (ABNORMAL) POCT urinalysis dipstick (04/10/2025 11:24 AM CDT) Color, Urine, POC Light Yellow Clarity, ur, POC Cloudy(A) Clear Glucose, ur, POC Negative Negative Bilirubin, ur, POC Negative Negative Ketones, ur, POC 15.(A) Negative Specific [place], POC 1.005 1.003 - 1.030 Blood, ur, [...] Final Result from Last 3 Months Insurance [facility] Care Teams School Business Manager Relationship Specialty Start Date End Date Jeanna, Linsey Huggins NP [address] [place] [address] PCP - General Nurse Practitioner 04/10/25
--- OUTSIDE RECORDS SUMMARY | 2025-04-11 12:28 | XMS_ITS | Clinical Summary ---
Author Organization [facility] Address [address] [place] [address] Phone Care Team Providers Care Clinical Research Specialist Name Role Phone Provider, None Primary Care [...] this topic Insurance MEDICAID [place] Care Teams Clinical Research Specialist Relationship Specialty Start Date End Date Provider, None [place] PCP - General 05/18/23
[2025-04-11 12:38] VITALS: BP 110/71; PULSE 110; RESP 18; TEMP 36.4; O2SAT 100
[2025-04-11 13:07] LABS: BEDSIDEPREGUCG Negative (Negative)
--- NOTE | 2025-04-11 13:46 | ED.FEMALEGU ---
HPI - Female Genitourinary General Chief complaint: Urogenital-Female <Caitlin Tyler PA-C - Last Filed: 04/11/25 13:54> Stated complaint: possible kidney infection <Caitlin Tyler PA-C - Last Filed: 04/11/25 13:54> Time Seen by Provider: 04/11/25 13:47 <ANGELY Urban Last Filed: 04/11/25 13:54> Focused HPI: Patient is a 44 y/o female who presents to the ED with c/o sheron flank pain. Reports having pain throughout her bilateral flank regions, worse throughout the left flank for the past 2 days. Pain became worse on fine. She also reported having fevers up to 103.2 degree F last night. She took ibuprofen for fever yesterday and pain today. Reports urinary frequency and urgency, but admits she has been drinking more water than usual. Denies dysuria, hematuria, N/V. GENERAL: Well-appearing, well-nourished, and in no acute distress. HEAD: Normocephalic, atraumatic. CHEST: Clear to auscultation. ?No respiratory distress. HEART: Regular rate and rhythm.? ABD: mild tenderness throughout sheron lower abdomen, worst in LLQ, normoactive BS NEURO: ?Alert and oriented x3. Patient screened in triage and initial orders placed.? ?Additional care and disposition to be based upon?diagnostic testing and treatment. <Caitlin Tyler PA-C - Last Filed: 04/11/25 13:54> Source: patient <Caitlin Tyler PA-C - Last Filed: 04/11/25 13:54> Mode of arrival: ambulatory <ANGELY Urban Last Filed: 04/11/25 13:54> Limitations: no limitations <AGNELY Urban Last Filed: 04/11/25 13:54> History of Present Illness HPI Narrative: I agree with above HPI <Emery Rich MD - Last Filed: 04/11/25 20:07> Related Data Home medications: Home Medications ?Medication ?Instructions ?Recorded ?Confirmed ?Last Taken ?Type Lions Andrea 2 tablet PO DAILY 04/28/22 04/28/22 Unknown History blue-green algae (bulk) (Spirulina 1 ea miscellaneous DAILY 03/20/22 03/20/22 Unknown History powder) <Caitlin Tyler PA-C - Last Filed: 04/11/25 13:54> Allergies/Adverse reactions: Allergies Allergy/AdvReac Type Severity Reaction Status Date / Time No Known Allergies Allergy Verified 03/20/22 15:27 <Caitlin Tyler PA-C - Last Filed: 04/11/25 13:54> Review of Systems Review of Systems: All systems reviewed & are unremarkable except as noted in HPI and below <Emery Rich MD - Last Filed: 04/11/25 20:07> PMFSH Past Medical History Medical History: Medical History (Updated 04/11/25 @ 16:39 by Emery Rich MD) Ovarian cyst <Caitlin Tyler PA-C - Last Filed: 04/11/25 13:54> Surgical History Surgical History: Surgical History (Updated 03/27/22 @ 14:20 by Tarun Clark DO) History of augmentation mammoplasty History of removal of ovarian cyst <Caitlin Tyler PA-C - Last Filed: 04/11/25 13:54> Social History Social History: Social History (Updated 11/03/19 @ 09:46 by Clarisa Vallecillo) Smoking packs per day: 1 Smoking cigarettes per day: 20.0 Years smoked: 20 Smoking pack-years: 20.00 Smoking status: Current every day smoker Second hand tobacco smoke exposure: Yes Alcohol intake: current Drinks per week: 18 Alcohol use details: WINE/MIXED DRINKS/BEER Substance use: current Substance use type: marijuana Living arrangements: with friend(s) Spiritual care concerns: No <ANGELY Urban Last Filed: 04/11/25 13:54> Exam Narrative: APPEARANCE: Well appearing, no pain, no distress, well-nourished. HEAD: normocephalic, atraumatic. EYES: PERRLA/EOMI, conjunctivae clear. NOSE: Normal no drainage EARS:TMS clear with good light reflex. THROAT: Pharynx clear, no exudate. NECK: Supple. No adenopathy, no masses. RESPIRATORY: Airway patent, respirations nonlabored. Clear to auscultation bilaterally, no rales, rhonchi, wheezing. CARDIOVASCULAR: Regular rate and rhythm without murmurs rubs or gallops. ABDOMINAL: Soft, nontender, nondistended, normal bowel sounds MUSCULOSKELETAL: Moves all extremities. Strength/ROM intact, No edema, No calf tenderness. NEURO: Alert. Cranial nerves II through XII intact. Good gait. Good coordination SKIN: Warm, dry. Normal Color <Emery Rich MD - Last Filed: 04/11/25 20:07> Course Vital Signs Vital signs: Vital Signs Temperature 97.5 F L 04/11/25 12:38 Pulse Rate 110 H 04/11/25 12:38 Respiratory Rate 18 04/11/25 12:38 Blood Pressure 110/71 04/11/25 12:38 Pulse Oximetry 100 04/11/25 12:38 Oxygen Delivery Room Air 04/11/25 12:38 Temperature 98.4 F 04/11/25 16:16 Pulse Rate 86 04/11/25 16:16 Respiratory Rate 16 04/11/25 16:16 Blood Pressure 112/67 04/11/25 16:16 Pulse Oximetry 100 04/11/25 16:16 Oxygen Delivery Room Air 04/11/25 12:38 <Caitlin Tyler PA-C - Last Filed: 04/11/25 13:54> Vital Signs Temperature 97.5 F L 04/11/25 12:38 Pulse Rate 110 H 04/11/25 12:38 Respiratory Rate 18 04/11/25 12:38 Blood Pressure 110/71 04/11/25 12:38 Pulse Oximetry 100 04/11/25 12:38 Oxygen Delivery Room Air 04/11/25 12:38 Temperature 98.4 F 04/11/25 16:16 Pulse Rate 86 04/11/25 16:16 Respiratory Rate 16 04/11/25 16:16 Blood Pressure 112/67 04/11/25 16:16 Pulse Oximetry 100 04/11/25 16:16 Oxygen Delivery Room Air 04/11/25 12:38 <Emery Rich MD - Last Filed: 04/11/25 20:07> MDM - Female Genitourinary MDM Narrative Medical decision making narrative: MSE by MATHEW in triage. <Caitlin Tyler PA-C - Last Filed: 04/11/25 13:54> MSE by MATHEW in triage. 44-year-old female presents emergency department for evaluation for urinary symptoms. Patient was recently started on Macrobid feels the medications are not helping with her symptoms. Patient is currently afebrile with no leukocytosis hemoglobin of 13.8. Patient has no significant acute abnormalities on her CMP with normal kidney function. Patient does have leukocyte esterase positive your with high white blood cells many squamous and many bacteria. Urine culture was ordered and patient is being switched from Macrobid to Keflex. Patient will also be provided Pyridium for urinary symptoms. Patient was encouraged to drink plenty of water. Patient was also encouraged close follow-up with primary care physician. <Emery Rich MD - Last Filed: 04/11/25 20:07> Differential Diagnosis Differential diagnosis: Likely urinary tract infection, bacterial vaginosis, trichomoniasis, ovarian cyst, cystitis and dysmenorrhea <Emery Rich MD - Last Filed: 04/11/25 20:07> Lab Data Attestation: I reviewed the patient's lab results. <Emery Rich MD - Last Filed: 04/11/25 20:07> Result diagrams: 04/11/25 13:53 04/11/25 13:53 <Caitlin Tyler PA-C - Last Filed: 04/11/25 13:54> Labs: Lab Results 04/11/25 04/11/25 04/11/25 Range/Units 13:05 13:06 13:53 WBC 5.8 (4.5-10.0) K/mm3 RBC 4.31 (4.2-5.4) M/mm3 Hgb 13.8 (12.0-15.0) g/dL Hct 40.3 (37.0-47.0) % MCV 93.5 (80-100) fl MCH 32.0 (26-34) pg MCHC 34.2 (32-36) g/dl RDW 13.1 (11.5-14.5) % Plt Count 233 (150-375) k/mm3 MPV 9.4 (7.4-10.4) fl Immature Gran % (Auto) 0.5 (0-0.5) % Neut % (Auto) 77.6 H (45.5-73.1) % Lymph % (Auto) 10.3 L (18.3-44.2) % [place] % (Auto) 10.8 H (2.6-8.5) % Eos % (Auto) 0.5 (0-4.4) % Baso % (Auto) 0.3 (0.2-1.2) % Lymph # (Auto) 0.59 L (0.9-3.2) K/mm3 [place] # (Auto) 0.6 (0.1-0.6) K/mm3 Eos # (Auto) 0.0 (0-0.3) K/mm3 Baso # (Auto) 0.0 (0.0-0.1) K/mm3 Abs Immat Gran (auto) 0.03 (0.00-0.031) K/mm3 Absolute Neuts (auto) 4.5 (1.3-6.7) K/mm3 Absolute Nucleated RBC 0.000 (0.0-0.012) K/mm3 Nucleated RBC % 0.0 (0.0-0.2) % Sodium 136 L (137-145) mmol/L Potassium 4.0 (3.4-5.0) mmol/L Chloride 108 H (98-107) mmol/L Carbon Dioxide 22 (22-30) mmol/L Anion Gap 6 (4-12) mmol/L BUN 4 L (7-17) mg/dL Creatinine 0.51 L (0.7-1.0) mg/dL Estim Creat Clear Calc 112 ml/min Estimated GFR > 60 (59 - ) Glucose 114 H (65-110) mg/dL Calcium 9.3 (8.4-10.2) mg/dL Urine Color Yellow (Yellow) Urine Appearance Turbid H (Clear) Urine pH 6.0 (5.0-9.0) Ur Specific [place] 1.018 (1.001-1.035) Urine Protein 1+ H (Negative) mg/dL Urine Glucose (UA) 2+ H (Negative) mg/dL Urine Ketones Trace H (Negative) mg/dL Ur Blood (Man) 1+ H (Negative) Urine Nitrate Negative (Negative) Urine Bilirubin Negative (Negative) Urine Urobilinogen 1.0 (<2.0) mg/dL Add Ur Microanalysis Reviewed Leukocyte Esterase Rfl 1+ H (Negative) ARMANI/UL Urine RBC 0-2 (0-2) /hpf Urine WBC 51-100 H (0-3) /hpf Ur Squamous Epith Cells Many H (Few) /hpf Urine Bacteria 4+ H /hpf Urine Casts 0-2 POC Urine HCG, Qual Negative (Negative) <Caitlin Tyler PA-C - Last Filed: 04/11/25 13:54> Lab Results 04/11/25 04/11/25 04/11/25 Range/Units 13:05 13:06 13:53 WBC 5.8 (4.5-10.0) K/mm3 RBC 4.31 (4.2-5.4) M/mm3 Hgb 13.8 (12.0-15.0) g/dL Hct 40.3 (37.0-47.0) % MCV 93.5 (80-100) fl MCH 32.0 (26-34) pg MCHC 34.2 (32-36) g/dl RDW 13.1 (11.5-14.5) % Plt Count 233 (150-375) k/mm3 MPV 9.4 (7.4-10.4) fl Immature Gran % (Auto) 0.5 (0-0.5) % Neut % (Auto) 77.6 H (45.5-73.1) % Lymph % (Auto) 10.3 L (18.3-44.2) % [place] % (Auto) 10.8 H (2.6-8.5) % Eos % (Auto) 0.5 (0-4.4) % Baso % (Auto) 0.3 (0.2-1.2) % Lymph # (Auto) 0.59 L (0.9-3.2) K/mm3 [place] # (Auto) 0.6 (0.1-0.6) K/mm3 Eos # (Auto) 0.0 (0-0.3) K/mm3 Baso # (Auto) 0.0 (0.0-0.1) K/mm3 Abs Immat Gran (auto) 0.03 (0.00-0.031) K/mm3 Absolute Neuts (auto) 4.5 (1.3-6.7) K/mm3 Absolute Nucleated RBC 0.000 (0.0-0.012) K/mm3 Nucleated RBC % 0.0 (0.0-0.2) % Sodium 136 L (137-145) mmol/L Potassium 4.0 (3.4-5.0) mmol/L Chloride 108 H (98-107) mmol/L Carbon Dioxide 22 (22-30) mmol/L Anion Gap 6 (4-12) mmol/L BUN 4 L (7-17) mg/dL Creatinine 0.51 L (0.7-1.0) mg/dL Estim Creat Clear Calc 112 ml/min Estimated GFR > 60 (59 - ) Glucose 114 H (65-110) mg/dL Calcium 9.3 (8.4-10.2) mg/dL Urine Color Yellow (Yellow) Urine Appearance Turbid H (Clear) Urine pH 6.0 (5.0-9.0) Ur Specific [place] 1.018 (1.001-1.035) Urine Protein 1+ H (Negative) mg/dL Urine Glucose (UA) 2+ H (Negative) mg/dL Urine Ketones Trace H (Negative) mg/dL Ur Blood (Man) 1+ H (Negative) Urine Nitrate Negative (Negative) Urine Bilirubin Negative (Negative) Urine Urobilinogen 1.0 (<2.0) mg/dL Add Ur Microanalysis Reviewed Leukocyte Esterase Rfl 1+ H (Negative) ARMANI/UL Urine RBC 0-2 (0-2) /hpf Urine WBC 51-100 H (0-3) /hpf Ur Squamous Epith Cells Many H (Few) /hpf Urine Bacteria 4+ H /hpf Urine Casts 0-2 POC Urine HCG, Qual Negative (Negative) <Emery Rich MD - Last Filed: 04/11/25 20:07> Discharge Plan Discharge Clinical Impression: Urinary tract infection <Caitlin Tyler PA-C - Last Filed: 04/11/25 13:54> Patient Disposition: Home <Caitlin Tyler PA-C - Last Filed: 04/11/25 13:54> Condition: Stable <Caitlin Tyler PA-C - Last Filed: 04/11/25 13:54> Instructions: Antibiotic Form, Urinary Tract Infection in Women (ED) <ANGELY Urban Last Filed: 04/11/25 13:54> Additional Instructions: Have close follow-up with your primary care physician. Stop taking the Macrobid, start taking Keflex. Take Pyridium as needed for urinary symptoms. If you have any worsening symptoms then please call or return to the emergency department. <ANGELY Urban Last Filed: 04/11/25 13:54> Patient Language: Luxembourgish <ANGELY Urban Last Filed: 04/11/25 13:54> Prescriptions: New cephalexin 500 mg capsule 500 mg PO Q8H 7 Days Qty: 21 0RF phenazopyridine [Pyridium] 100 mg tablet 100 mg PO TID PRN (Reason: pain) Qty: 6 0RF No Action Spirulina Powder 1 ea miscellaneous DAILY Lions Andrea 2 tablet PO DAILY <ANGELY Urban Last Filed: 04/11/25 13:54> Follow-up/Referrals: Meeks,Linsey Martinez APN [Primary Care Provider] - <ANGELY Urban Last Filed: 04/11/25 13:54>
[2025-04-11 13:52] LABS: Add Urine Microscopic? YES; Appearance Urine Turbid (Clear); Bacteria Urine 4+ /hpf; Bilirubin Urine Negative (Negative); Blood Urine 1+ (Negative); Color Urine Yellow (Yellow); Glucose Urine UA 2+ mg/dL (Negative); Ketones Urine Trace mg/dL (Negative); Leukocyte Esterase Ur 1+ LEU/UL (Negative); Need Manual Microscopic Reviewed; Nitrate Urine Negative (Negative); Non Pathogenic Casts 0-2; Protein Urine 1+ mg/dL (Negative); RBC Urine 0-2 /hpf (0-2); Specific Grav Ur 1.018 (1.001-1.035); Squamous Epithelial Cell Urine Many /hpf (Few); WBC Urine 51-100 /hpf (0-3)
[2025-04-11 14:07] LABS: Basophils Percent Auto 0.3 % (0.2-1.2); Eosinophils Percent Auto 0.5 % (0-4.4); Hematocrit 40.3 % (37.0-47.0); Hemoglobin 13.8 g/dL (12.0-15.0); Immature Granulocyte Absolute 0.03 K/mm3 (0.00-0.031); Immature Granulocyte Percent A 0.5 % (0-0.5); Lymphocytes Absolute Auto 0.59 K/mm3 (0.9-3.2); Lymphocytes Percent Auto 10.3 % (18.3-44.2); Mean Corpuscular HGB Conc 34.2 g/dl (32-36); Mean Corpuscular Volume 93.5 fl (80-100); Mean Platelet Volume 9.4 fl (7.4-10.4); Monocytes Absolute Auto 0.6 K/mm3 (0.1-0.6); Monocytes Percent Auto 10.8 % (2.6-8.5); Neutrophils Absolute Auto 4.5 K/mm3 (1.3-6.7); Neutrophils Percent Auto 77.6 % (45.5-73.1); Platelet Count Result 233 k/mm3 (150-375); Red Blood Count 4.31 M/mm3 (4.2-5.4); Red Cell Distribution Width 13.1 % (11.5-14.5); White Blood Count 5.8 K/mm3 (4.5-10.0)
[2025-04-11 14:17] LABS: Anion Gap 6 mmol/L (4-12); Blood Urea Nitrogen 4 mg/dL (7-17); Calcium 9.3 mg/dL (8.4-10.2); Carbon Dioxide 22 mmol/L (22-30); Chloride 108 mmol/L (98-107); Estimated CRCL calculation 112 ml/min; Estimated Glomerular Filt Rate > 60; Glucose 114 mg/dL (65-110); Sodium 136 mmol/L (137-145)
--- OUTSIDE RECORDS SUMMARY | 2025-04-11 14:26 | XMS_ITS | Clinical Summary ---
Author Organization [facility] Address [address] [place] [address] Phone Care Team Providers Care Pharmaceutical Representative Name Role Phone Provider, None Primary Care [...] this topic Insurance MEDICAID [place] Care Teams Pharmaceutical Representative Relationship Specialty Start Date End Date Provider, None [place] PCP - General 05/18/23
--- OUTSIDE RECORDS SUMMARY | 2025-04-11 14:26 | XMS_ITS | Encounter Summary ---
Author Organization [facility] Address [address] [place] [id number] Care Team Providers Care Director Appointment Name Role Phone Meeks, Linseygiancarlo Huggins ARMOR RECONNAISSANCE VEHICLE DRIVER Primary Care Provider [phone] Reason for Visit * Reason Comments Urinary Problem Patient here for c/o back pain and frequency Encounter Details Date Type Department Care Team (Late st Contact Info) Description 04/10/2025 11:30 AM CDT Office Visit 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 ??Contact your primary care doctor or VIDEO CONFERENCE SPECIALIST if: ?? You have a fever. ?? You have white or yellow discharge from your vagina. ?? You do not feel better after 2 days of taking antibiotics. * Attachments The following attachments cannot be sent through Care Everywhere. * Urinary Tract Infection in Women (AfterCare(R) Instructions(ER/ED)) ([place]) documented in this encounter Ordered Prescriptions Prescription [...] Ketones, ur, POC 15. (A) Negative Specific [place], POC 1.005 1.003 - 1.030 Blood, ur, [...] Negative Ketones, ur, POC 15.(A) Negative Specific [place], POC 1.005 1.003 - 1.030 Blood, ur, [...] 02/28/2025 added in this encounter Care Teams Director Appointment Relationship Specialty Start Date End Date Linsey Meeks NP [address] [place] [address] PCP - General Nurse Practitioner 04/10/25 documented as of this encounter
--- OUTSIDE RECORDS SUMMARY | 2025-04-11 14:26 | XMS_ITS | Referral Summary ---
Author Organization [address] Address [address] [place] [address] Care Team Providers Care Turner And Former Automatic Name Role Phone Meeks, Linsey Bhavna DOS SANTOS Primary Care Provider [phone] Encounters Date Type Department Care Team Description 04/10/2025 11:56 AM CDT - 04/10/2025 11:59 PM CDT Hospital Encounter [address] [address] Acute cystitis with hematuria Discharge Disposition: Discharge to home or self care 04/10/2025 11:30 AM CDT Office Visit [facility]ient Care at [address] [address] Gregoria Madrid PA Acute cystitis [...] on file 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
--- OUTSIDE RECORDS SUMMARY | 2025-04-11 14:26 | XMS_ITS | Clinical Summary ---
Author Organization [place] [address] [place] Address [address] [place] [address] Care Team Providers Care Poultry Packer Name Role Phone Meeks, Linsey Huggins SCALLOP DREDGER Primary Care Provider [phone] Allergies No known active allergies Medications benzonatate [...] - 04/10/2025 11:59 PM CDT Hospital Encounter [address] [address] Acute cystitis with hematuria Discharge Disposition: Discharge to home or self care 04/10/2025 11:30 AM CDT Office Visit [facility] at [address] [address] Gregoria Madrid PA Acute cystitis with hematuria (Primary Dx) from Last 3 Months Social History Tobacco Use Types Packs/Day Years Used Date Smoking Tobacco: Every Day Cigarettes Tobacco Cessation:Ready to Q uit: Not Asked; Counseling Given: Not Answered Comments Unknown Sex and Gender Information Value Date Recorded Sex Assigned at Not on file 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
--- OUTSIDE RECORDS SUMMARY | 2025-04-11 14:26 | XMS_ITS | Encounter Summary ---
Author Organization [facility] Healthcare Address [address] [place] [address] Care Team Providers Care Customer Account Technician Name Role Phone Meeks, Linsey Huggins MONITORING ENGINEER Primary Care Provider [phone] Encounter Details Date Type Department Care Team (Latest Contact Info) Description 04/10/2025 11:56 AM CDT - 04/10/2025 11:59 PM CDT Hospital Encounter [facility] [id number] [place] [id number] Acute cystitis with hematuria Discharge Disposition: Discharge to home or self care Social History Tobacco Use Types Packs/Day Years Used Date Smoking Tobacco: Every Day Cigarettes Comments Unknown Sex and Gender Information Value Date Recorded Sex Assigned at Not on file Legal 

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
--- NOTE | 2025-04-11 15:03 | PC.NURSE ---
Report given to MARTHA Gonzales
[2025-04-11 16:16] VITALS: BP 112/67; PULSE 86; RESP 16; TEMP 36.9; O2SAT 100
[2025-04-11] MEDS: CEPHALEXIN 500 MG CAPSULE PO (16:54)
== END 2025-04-11 16:57 | disposition home or self-care (01) ==
PROVIDERS: Physician Assistant; Emergency Provider Emergency Medicine; PCP Nurse Practitioner Family
DX: N39.0 Urinary tract infection, site not specified (principal); F17.210 Nicotine dependence, cigarettes, uncomplicated
CPT/HCPCS: 36415; 74176; 80048; 81001; 81025; 85025; 99284; A9270

== ENCOUNTER 2025-07-15 18:35 | Emergency (ER) | payer OTHER, SELFPAY ==
--- OUTSIDE RECORDS SUMMARY | 2025-07-15 18:39 | XMS_ITS | Clinical Summary ---
Author Organization [facility] [address] [place] Address [address] [place] [address] Care Team Providers Care Bag Loader Machine Operator Name Role Phone Meeks, Linsey Bhavna ARTIST SUSPECT Primary Care Provider Allergies No known active [...] by mouth daily as needed 02/29/20 Active Active Problems No known active problems Social History Tobacco Use Types Packs/Day Years Used Date Smoking Tobacco: Every Day Cigarettes Tobacco Cessation:Ready to Q uit: Not Asked; Counseling Given: Not Answered Comments Unknown Sex and Gender Information Value Date Recorded Sex Assigned at Not on file 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 Gender Identity Not on file Sexual Orientation [...] 11:18 AM CDT Height 175.3 cm (5' 9) 04/10/2025 11:18 AM CDT Body Mass Index 21.12 04/10/2025 11:18 AM CDT Plan of Treatment Health Maintenance Due Date Last Done Comments Breast Cancer Screening-Mammogram 1978 Cervical Cancer Screening 1978 Colon Cancer Screening-Colonoscopy 1978 Depression Screening 1978 Hepatitis C Screening 1978 Regular Well Visit/Exam 18-64 1996 Pneumococcal vaccine <65 (1 of 2 - PCV) 1997 Covid-19 Vaccine ( season) 2024 07/15/2021, 06/24/2021, 06/03/2021 Influenza Vaccine (#1) 2025 DTaP/Tdap/Td Vaccine (2 - Td or Tdap) 11/03/202910/2019 Hepatitis B Screening Completed 02/11/2023, 023 Insurance [facility] Care Teams Bag Loader Machine Operator Relationship Specialty Start Date End Date Linsey Meeks NP [address] [place] [address] PCP - General Nurse Practitioner 04/10/25
--- OUTSIDE RECORDS SUMMARY | 2025-07-15 18:41 | XMS_ITS | Clinical Summary ---
Author Organization [facility] Address [address] [place] [address] Phone Care Team Providers Care Habitat Management Coordinator Name Role Phone Provider, None Primary [...] 2:44 PM CDT Height 175.3 cm (5' 9) 05/18/2023 2:44 PM CDT Body Mass Index 22.15 05/18/2023 2:44 PM CDT Plan of Treatment Health Maintenance Due Date Last Done Comments Hepatitis C Virus (HCV) Screening 1978 Pap Smear 1999 Cervical Cancer Screening (CCS) 2008 HPV/Cotest 2008 Human Papillomavirus (HPV) Immunization (3 - 3-dose SCDM series) 05/25/2023 02/11/2023, 11/25/2022 Cologuard 2023 Colonoscopy 2023 Colorectal Cancer Screening 2023 Immunochemical Fecal Occult Blood 2023 Hepatitis B Immunization (3 of 3 - 19+ 3-dose series) 07/05/2023 02/11/2023, 01/05/2023 SARS-COV-2 Immunization ( season) 2024 07/15/2021, 06/24/2021, 06/03/2021 Influenza Immunization (#1) 2025 Respiratory Syncytial Virus (RSV) Immunization (Adult) (1 [...] age to complete this topic Insurance MEDICAID [place] Care Teams Habitat Management Coordinator Relationship Specialty Start Date End Date Provider, None [place] PCP - General 05/18/23
[2025-07-15 18:42] VITALS: BP 127/61; PULSE 97; RESP 20; TEMP 36.6; O2SAT 100
--- NOTE | 2025-07-15 18:42 | ED.FEMALEGU ---
HPI - Female Genitourinary General Chief complaint: Urogenital-Female Stated complaint: urgency to urinate Time Seen by Provider: 07/15/25 19:02 Source: patient and RN notes reviewed Mode of arrival: ambulatory Limitations: no limitations History of Present Illness HPI Narrative: 5-year-old female presents with concern for dysuria, urgency, frequency. Reports symptoms started today. She denies fever, body aches, chills, sweats. She denies nausea, vomiting, back pain. MD elicited complaint: UTI Related Data Allergies Allergy/AdvReac Type Severity Reaction Status Date / Time No Known Allergies Allergy Verified 07/15/25 18:45 Review of Systems Review of Systems: CONSTITUTIONAL: Denies malaise, chills, sweats, or fever. CARDIOVASCULAR: Denies chest pain, palpitations, or edema. RESPIRATORY: Denies cough or dyspnea. GASTROINTESTINAL: Denies abdominal pain, nausea, vomiting, diarrhea GENITOURINARY: Reports dysuria, frequency, urgency. Denies flank pain or hematuria. SKIN: Denies rash or itching. MUSCULOSKELETAL: Denies back pain or myalgia. All systems reviewed & are unremarkable except as noted in HPI and below PMFSH Past Medical History Medical History (Updated 07/15/25 @ 19:05 by Stacy Ernandez NP) Ovarian cyst Surgical History Surgical History (Updated 03/27/22 @ 14:20 by Tarun Clark DO) History of augmentation mammoplasty History of removal of ovarian cyst Social History Social History (Updated 11/03/19 @ 09:46 by Clarisa Vallecillo) Smoking packs per day: 1 Smoking cigarettes per day: 20.0 Years smoked: 20 Smoking pack-years: 20.00 Smoking status: Current every day smoker Second hand tobacco smoke exposure: Yes Alcohol intake: current Drinks per week: 18 Alcohol use details: WINE/MIXED DRINKS/BEER Substance use: current Substance use type: marijuana Living arrangements: with friend(s) Spiritual care concerns: No Comments At time of signature, agree with nursing past medical, surgical, social and family history. There is no relevant family history pertinent to the presenting complaint Exam Narrative: GENERAL: Well-appearing, well-nourished, and in no acute distress. HEAD: Normocephalic. EYES: PERRLA, conjunctivae clear. NECK: Supple. No lymphadenopathy CHEST: Clear to auscultation. No respiratory distress. HEART: Regular rate and rhythm. ABDOMEN: Soft, nontender upon palpation, nondistended, no palpable or pulsatile masses, no guarding. No CVA tenderness SKIN: Warm, dry, no rash. NEURO: Alert and oriented x3. PSYCH: Normal mood and affect Course Course Emergency Course: Patient is aware of diagnosis, understands and agrees to treatment plan. Anticipatory guidance given. Patient agrees to follow-up as directed and is aware of reasons to seek care at the emergency department. Portions of this record may have been created with voice recognition software Level of Care: Express Care Visit Vital Signs Vital signs: Reviewed. MDM - Female Genitourinary MDM Narrative Medical decision making narrative: Exam findings and UA show no acute concerns or changes; patient is non-toxic appearing and is in no distress. Patient is appropriate for outpatient treatment and follow-up. Differential Diagnosis Differential diagnosis: Likely urinary tract infection and cystitis Critical Care Time Critical Care Time Critical Care Time: No Discharge Plan Discharge Clinical Impression: Urinary tract infection Patient Disposition: Home Condition: Stable Instructions: Antibiotic Form, Urinary Tract Infection in Women (ED) Additional Instructions: We will send a urine culture to the lab; if the culture identifies an organism that the prescribed antibiotic will not treat, you will receive a phone call from an urgent care staff member and an appropriate antibiotic will be prescribed. -Your symptoms should begin to improve within a day of starting antibiotics. But you should finish all the antibiotic pills you get. Otherwise your infection might come back. -Also recommend: increase water intake. Tylenol/ibuprofen as needed for pain or fever -Follow-up with your primary care provider for urine recheck or seek ER visit if condition worsens with high fever, nausea, vomiting and severe back pain. Patient Language: Faroese Prescriptions: New sulfamethoxazole-trimethoprim 800-160 mg tablet 1 tablet PO Q12H 7 Days Qty: 14 0RF Follow-up/Referrals: Jeanna,Linsey Martinez APN [Primary Care Provider, Unknown] Time of Disposition: 19:06
[2025-07-15 19:04] LABS: EDUAAPPEAR Cloudy; EDUABILI Negative (Negative); EDUABLOOD 2+ (Negative); EDUACOLOR1 Dark; EDUAGLUCOSE Negative (Negative); EDUAKETONE Negative (Negative); EDUALEUKO 1+ (Negative); EDUANITRATE Negative (Negative); EDUAPH 7.0; EDUAPROTEIN 2+ (Negative); EDUASPGRAVITY 1.030; EDUAUROBILI 1.0
== END 2025-07-15 19:10 | disposition home or self-care (01) ==
PROVIDERS: Emergency Provider Nurse Practitioner; PCP Nurse Practitioner Family
DX: N39.0 Urinary tract infection, site not specified (principal); F17.210 Nicotine dependence, cigarettes, uncomplicated
CPT/HCPCS: 81003; 87086; 99213; G0463